=== PATIENT | female | born 1975 | race Caucasian/White ===

== ENCOUNTER 2019-12-23 18:28 | Emergency (ER) | payer OTHER ==
[~2019-12-23] VITALS: Ht 170.2 cm; Wt 113.4 kg
[2019-12-23 18:40] VITALS: BP 139/59
--- NOTE | 2019-12-23 18:40 | NUR ---
ED Nurse Note: Patient walked into ED from home for c/o SOB that has become worse x 2 weeks. Patient also has cough with audible wheezing. Upon ED arrival, patient placed in room and connected to cardiovascular lab director. Pt noted to be tachy on monitor and oxygen saturation was 89/90% on RA. Pt becomes tachypneic with exertion, but is able to speak in full sentences. Pt placed on 2L oxygen via NC and oxygen sat went to 95%. She is aaox4. Safety measures in place. Will continue to monitor.
[2019-12-23] MEDS: Albuterol/Ipratropium 3ml neb HHN SCH ×4 (19:10→19:45)
[2019-12-23] MEDS ORDERED: ALBUTEROL SULF8.5 G1 INH (19:55)
[2019-12-23] MEDS ORDERED: PROMETHAZINE-C118 M1 ORAL (19:55)
[2019-12-23] MEDS ORDERED: AUGMENTIN 875-1 EAC1 ORAL (19:55)
[2019-12-23] MEDS ORDERED: PREDNISONE20 MG ORAL (19:55)
[2019-12-23 20:05] VITALS: BP 140/66
--- NOTE | 2019-12-23 20:05 | NUR ---
ER DISCHARGE NOTE: Patient is cleared to be discharged per ERMD, pt is aox4, on room air, with stable vital signs for pt; ermd aware of HR. pt was given dc and prescription instructions, pt was able to verbalize understanding, pt id band removed. pt is able to ambulate with steady gait. pt took all belongings.
--- NOTE | 2019-12-23 20:05 | NUR ---
ED Nurse Note: ALANNAD aware of pt HR upon DC. Patient states she feels better and is not SOB after treatment.
--- NOTE | 2019-12-23 20:57 | Emergency Room Report ---
History of Present Illness General Chief Complaint: Dyspnea/Respdistress Source: Patient Present Illness HPI 44-year-old female presents the ED with cough, wheezing x2 weeks. History of COPD. States cough is dry. Denies fevers or chills. Denies chest pain. Denies sick contacts or recent travel. States she has been recently tested for COVID and was negative. Also has multiple sores and on both of her arms. Denies pain. No other aggravating relieving factors. 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 - 5 days ago COVID-19 Screening: Negative COVID-19 COVID-19 Testing Source: nasal Patient History Past Medical History: HTN, COPD Pertinent Family History: none Social History: Denies: smoking, alcohol use, drug use Now: No Immunizations: UTD Reviewed Nursing Documentation: PMH: Agreed; PSxH: Agreed Nursing Documentation-PMH Past Medical History: No History, Except For Hx Hypertension: Yes Hx COPD: Yes Review of Systems All Other Systems: negative except mentioned in HPI Physical Exam Vital Signs Date Time Temp Pulse Resp B/P (MAP) Pulse Ox O2 Delivery O2 Flow Rate FiO2 12/23/19 18:38 99.9 134 30 89 Room Air 12/23/19 18:40 2.0 12/23/19 18:40 139/59 12/23/19 19:11 24 Sp02 EP Interpretation: reviewed, normal General Appearance: no apparent distress, alert, GCS 15, non-toxic, obese Head: normocephalic, atraumatic Eyes: bilateral eye normal inspection, bilateral eye PERRL ENT: hearing grossly normal, normal pharynx, no angioedema, normal voice Neck: full range of motion, supple/symm/no masses Respiratory: chest non-tender, normal breath sounds, speaking full sentences, wheezing Cardiovascular #1: regular rate, rhythm, no edema Cardiovascular #2: 2+ carotid (R), 2+ carotid (L), 2+ radial (R), 2+ radial (L), 2+ dorsalis pedis (R), 2+ dorsalis pedis (L) Gastrointestinal: normal bowel sounds, non tender, soft, non-distended, no guarding, no rebound Rectal: deferred Genitourinary: normal inspection, no CVA tenderness Musculoskeletal: back normal, normal range of motion, gait/station normal, non- tender Neurologic: alert, motor strength/tone normal, oriented x3, sensory intact, responsive, speech normal Psychiatric: judgement/insight normal, memory normal, mood/affect normal, no suicidal/homicidal ideation Reflexes: 3+ bicep (R), 3+ bicep (L), 3+ tricep (R), 3+ tricep (L), 3+ knee (R), 3+ knee (L) Skin: other - multiple ulcers noted to upper extremities bilaterally. surrounding erythema/induration. no discharge Lymphatic: no adenopathy Procedures Critical Care Time Critical Care Time i. I feel this is a highly complex case requiring extensive working including EKG/Rhythm strip, Xray/CT/US, Blood/urine lab work, repeat exams while in ED, and administration of strong opiates/narcotics for pain control, admission to hospital or close patient follow up. Total time: 30 min bedside evaluation and treatment excludes procedures (EKG). Reason for critical care: resp distress. COPD Possible complications: hypotension, hypertension, AL, shock, arrhythmias, metabolic acidosis, end organ damage, respiratory failure. Interventions: Prednisone, nebulizer treatment, chest x-ray Course: Patient presenting with shortness of breath, wheezing. History of COPD. O2 sats in the low 90s. Given breathing treatment. Chest x-ray shows no focal consolidation. Improved after breathing treatment. O2 sats improved. Consultations: nursing staff, EMS, family Performed by: Dr Salamanca Tolerated well condition = stable j. because of unstable vital signs this patient had a condition that could potentially threaten life or limb. I feel this is a critical patient who required my full attention while patient was considered critical. Total Critical Care Time excluding procedures was greater than 35 minutes Medical Decision Making Diagnostic Impression: Primary Impression: Cellulitis Qualified Codes: L03.119 - Cellulitis of unspecified part of limb Additional Impression: COPD (chronic obstructive pulmonary disease) Qualified Codes: J44.9 - Chronic obstructive pulmonary disease, unspecified ER Course Hospital Course 44-year-old female presents to ED complaining of cough, wheezing Differential diagnoses include: URI, bronchitis, asthma/COPD, pneumonia Clinical course Patient placed on stretcher. After initial history and physical I ordered prednisone, cxr and nebulizer treatment. Chest x-ray shows no focal consolidation Reassessment patient states she feels better. O2 sats improved. Wheezing resolved. Discussed findings with patient. Will discharge home with antib iotics. Will also provide coverage for the ulcers on her arms and legs. Safe for discharge close outpatient follow-up. I will provide referrals Diagnosis - COPD, cellulitis Stable and discharged home with prescriptions for Rx prednisone, augmentin, pr omethazine/codeine, albuterol. Instructed to followup with PMD. Return to ED if symptoms recur or worsen Last Vital Signs Date Time Temp Pulse Resp B/P (MAP) Pulse Ox O2 Delivery O2 Flow Rate FiO2 12/23/19 20:05 99.5 120 20 140/66 95 Room Air 12/23/19 19:28 1.0 24 Status: improved Disposition: HOME, SELF-CARE Condition: Stable Scripts Codeine/Promethazine Hcl* (PROMETHAZINE-CODEINE SYRUP*) 118 Ml Syrup 5 ML ORAL Q4H PRN for For Cough, #118 ML 0 Refills Prov: Tunde Salamanca MD 12/23/19 Amoxicillin/Potassium Clav 875-125* (AUGMENTIN 875-125 TABLET*) 1 Each Tablet 1 TAB ORAL TWICE A DAY, #14 TAB Prov: Tunde Salamanca MD 12/23/19 Albuterol Sulfate* (Albuterol Sulfate Hfa*) 8.5 Gm Hfa.aer.ad 2 PUFF INH Q4H, #1 INH Prov: Tunde Salamanca MD 12/23/19 Prednisone* (PREDNISONE*) 20 Mg Tablet 40 MG ORAL DAILY, #10 TAB Prov: Tunde Salamanca MD 12/23/19 Referrals: [facility] Patient Instructions: Chronic Obstructive Pulmonary Disease Exacerbation Tunde Salamanca MD Dec 23, 2019 20:57
--- NOTE | 2019-12-24 14:09 | Diagnostic Imaging Report ---
Indication: Shortness of breath Technique: One view of the chest Comparison: 08/24/2008 Findings: The heart is enlarged. This is a new finding. There is left midlung atelectasis. Lungs and pleural spaces are otherwise clear. Impression: Cardiomegaly Left midlung atelectasis
== END 2019-12-23 20:05 | disposition home or self-care (01) ==
LOC: EMR 19:00
DX: J44.9 Chronic obstructive pulmonary disease, unspecified (principal); L03.119 Cellulitis of unspecified part of limb; I10 Essential (primary) hypertension; E66.9 Obesity, unspecified
CPT/HCPCS: 71045; 94640; 99291; J7512; J7620

== ENCOUNTER 2020-01-28 17:15 | Inpatient (IN) | payer OTHER ==
[~2020-01-28] VITALS: Ht 170.2 cm; Wt 151.5 kg
[~2020-01-28 17:15] MED LIST: ALBUTEROL SULF8.5 G1 INH; AUGMENTIN 875-1 EAC1 ORAL; PREDNISONE20 MG ORAL; PROMETHAZINE-C118 M1 ORAL
[2020-01-28 17:45] VITALS: BP 168/103
--- NOTE | 2020-01-28 17:45 | NUR ---
ED Nurse Note: Pt wheeled in accompanied by her PA d/t SOB x 2 month. Pt also reporting bilateral lower ext swelling with redness, pus noted on right leg. Abdomen large with redness as well. Respirations are labored and tachy @ 28 breaths/min on room air with O2 sat 94%. Heart rate sinus tachy on the monitor @ 143. All other vitals stable as documented. A+Ox4, speaking in complete sentences.
[2020-01-28 18:00] LABS: BASOPHILS % (AUTO) 0.8 % (0.0-2.0); EOSINOPHILS % (AUTO) 0.4 % (0.0-3.0); HEMATOCRIT 43.1 % (37.0-47.0); HEMOGLOBIN 13.5 G/DL (12.0-16.0); LYMPHOCYTES % (AUTO) 30.5 % (20.0-45.0); MEAN CORPUSCULAR VOLUME 96 FL (80-99); NEUTROPHILS % (AUTO) 59.3 % (45.0-75.0); PLATELET COUNT 269 K/UL (150-450); RED BLOOD COUNT 4.48 M/UL (4.20-5.40); WHITE BLOOD COUNT 7.9 K/UL (4.8-10.8)
--- NOTE | 2020-01-28 18:09 | Diagnostic Imaging Report ---
EXAM: XR Chest, 1 View CLINICAL HISTORY: SOB TECHNIQUE: Frontal view of the chest. COMPARISON: 12/23/2019. FINDINGS: Lungs: There is prominence of central pulmonary vasculature. Interstitial prominence. Scarring versus subsegmental atelectasis left midlung zone. Pleural space: Unremarkable. No pneumothorax. Heart: Cardiomegaly. Mediastinum: Unremarkable. Bones/joints: Osteopenia. Other findings: There is hypoaeration. IMPRESSION: 1. Cardiomegaly. 2. Findings suggestive of incipient congestive heart failure. Clinical correlation is advised. 3. Scarring versus atelectasis left midlung zone, similar to that noted on the previous study. 4. Osteopenia.
[2020-01-28 18:13] LABS: ANION GAP 12 mmol/L (5-15); BLOOD UREA NITROGEN 6 mg/dL (7-18); CALCIUM 8.3 MG/DL (8.5-10.1); CARBON DIOXIDE 26 MMOL/L (21-32); CHLORIDE 101 MMOL/L (98-107); CREATININE 0.8 MG/DL (0.55-1.30); POTASSIUM 3.7 MMOL/L (3.5-5.1); SODIUM 139 MMOL/L (136-145)
[2020-01-28] MEDS ORDERED: Vancomycin 1.5 GM in NS 275 ML IVPB ONE (18:15)
[2020-01-28] MEDS ORDERED: Nitroglycerin 2% oint pkt TOPIC ONE (18:15)
[2020-01-28 18:31] LABS: ALANINE AMINOTRANSFERASE 83 U/L (12-78); ALBUMIN 3.2 G/DL (3.4-5.0); ALBUMIN/GLOBULIN RATIO 0.8 (1.0-2.7); ALKALINE PHOSPHATASE 118 U/L (46-116); ASPARTATE AMINO TRANSFERASE 154 U/L (15-37); BILIRUBIN,TOTAL 1.3 MG/DL (0.2-1.0); CKMB 2.4 NG/ML (0.0-3.6); CREATINE KINASE 113 U/L (26-308); FERRITIN 100 NG/ML (8-388); LACTATE DEHYDROGENASE 447 U/L (81-234)
[2020-01-28 18:35] LABS: BILIRUBIN,DIRECT 0.8 MG/DL (0.0-0.3)
--- NOTE | 2020-01-28 18:36 | NUR ---
ED Nurse Note: pt aware of need for urine sample.
[2020-01-28] MEDS ORDERED: Adenosine 6mg/2ml Inj IVP ONE ×3 (18:45→21:15)
--- NOTE | 2020-01-28 18:59 | NUR ---
ED Nurse Note: lactic acid reflex and urine sent to lab
--- NOTE | 2020-01-28 19:17 | NUR ---
HAND-OFF: Report given to ANNABELLE Nicole. Pt in stable condition; plan of care endorsed.
--- NOTE | 2020-01-28 19:21 | NUR ---
ED Nurse Note: ERMD at bedside, 6mg Adenosine pushed, ineffective.
[2020-01-28 19:50] LABS: APPEARANCE,URINE SLIGHTLY CLOUDY; BILIRUBIN, URINE NEGATIVE (NEGATIVE); GLUCOSE, URINE (UA) NEGATIVE (NEGATIVE); KETONES,URINE 1+ (NEGATIVE); LEUKOCYTE ESTERASE ,URINE 1+ (NEGATIVE); NITRITE,URINE NEGATIVE (NEGATIVE); PH,URINE 6.5 (4.5-8.0); PROTEIN,URINE 2+ (NEGATIVE); UROBILINOGEN,URINE 8 MG/DL (0.0-1.0)
[2020-01-28 19:55] LABS: COLOR,URINE YELLOW
--- NOTE | 2020-01-28 20:06 | NUR ---
ED Nurse Note: Patient refused urinary cath.
--- NOTE | 2020-01-28 20:29 | NUR ---
ED Nurse Note: Patient agreed to have velez urinary cath inserted, velez cath 16 F inserted, rg care provided, patent and draining.
--- NOTE | 2020-01-28 20:57 | Emergency Room Report ---
History of Present Illness General Chief Complaint: Dyspnea/Respdistress Source: Patient Present Illness HPI The patient is homeless and living in her van. She is getting medical care by the out reach medical program. She had been followed closely by a physician recruiting assistant in that program. The physician recruiting assistant and the RN on the out reach team did accompany the patient here to the emergency department. The patient has had an ongoing cellulitis in her right lower extremity and has been on oral antibiotics of Septra and Keflex. However, the cellulitis has been worsening. Also, the patient has been complaining of difficulty breathing and worsening swelling in her lower extremities. Patient does have a history of COPD. She has an umbilical hernia. She denies fever or chills. She denies nausea or vomiting and she denies cough or congestion. She has no other complaints. 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 COVID-19 Screening: Negative COVID-19 COVID-19 Testing Source: nasopharynx Patient History Past Medical History: see triage record, HTN, COPD, other - HCV Social History: Reports: drug use - Meth; Denies: smoking, alcohol use Now: No Reviewed Nursing Documentation: PMH: Agreed; PSxH: Agreed Nursing Documentation-PMH Hx Hypertension: Yes Hx COPD: Yes Review of Systems All Other Systems: negative except mentioned in HPI Physical Exam Vital Signs Date Time Temp Pulse Resp B/P (MAP) Pulse Ox O2 Delivery O2 Flow Rate FiO2 01/28/20 17:35 97.0 135 30 163/100 (121) 96 Room Air Sp02 EP Interpretation: reviewed, normal General Appearance: no apparent distress, alert, GCS 15, non-toxic, obese Head: normocephalic, atraumatic Eyes: bilateral eye normal inspection, bilateral eye PERRL ENT: hearing grossly normal, normal pharynx, no angioedema, normal voice Neck: full range of motion, supple/symm/no masses Respiratory: no respiratory distress, no retraction, no accessory muscle use, rales, speaking full sentences Cardiovascular #1: regular rate, rhythm, no edema Gastrointestinal: normal bowel sounds, soft, non-distended, no guarding, no rebound, tenderness - TTP over a large umbilical hernia. Rectal: deferred Musculoskeletal: normal range of motion, swelling - BLE edema. RLE w/ erythema, warmth and overlying large pustules Neurologic: alert, motor strength/tone normal, oriented x3, sensory intact, responsive, speech normal Psychiatric: judgement/insight normal, memory normal, mood/affect normal, no suicidal/homicidal ideation Skin: other - See MSK exam Medical Decision Making Diagnostic Impression: Primary Impression: Cellulitis Additional Impressions: CHF (congestive heart failure) SVT (supraventricular tachycardia) ER Course This patient is complicated. The patient has been living in her van on [address]. She has multiple ongoing acute medical illnesses. She has a right lower extremity cellulitis that has been resistant to oral outpatient therapy. She was given vancomycin IV for her cellulitis. She also presented in SVT and was difficult to control but eventually was controlled with adenosine followed by labetalol. She is found to have cardiomegaly and CHF. There is no previous diagnosis of CHF. She was given Lasix IV and Nitropaste was placed on her chest wall. She also has a history of heavy tobacco use and has a history of COPD and she was also having a COPD exacerbation. She was requiring oxygen to maintain saturations over 90%. She was given albuterol, Atrovent nebulizer treatments and prednisone. The patient was complicated requiring close monitoring and treatments for multiple medical conditions at the same time. Further, she was requesting to go outside and smoke. The patient is admitted for CHF, COPD and ongoing cellulitis. This patient was evaluated in the context of the global COVID-19 pandemic, which necessitated consideration that the patient might be at risk for infection with the [id number] virus that causes COVID-19. Institutional protocols and algorithms that pertain to the evaluation of patients at risk for COVID-19 and the state of rapid change based on information released by multiple regulatory bodies including the CDC and federal and state organizations. These policies and algorithms were followed during the patient's care in the ED. This patient is critically ill. This patient required complex medical decision- making, aggressive intervention, extensive laboratory workup and monitoring. Critical care time: 40 minutes. Laboratory Tests Test 01/28/20 17:35 01/28/20 18:50 White Blood Count 7.9 K/UL (4.8-10.8) Red Blood Count 4.48 M/UL (4.20-5.40) Hemoglobin 13.5 G/DL (12.0-16.0) Hematocrit 43.1 % (37.0-47.0) Mean Corpuscular Volume 96 FL (80-99) Mean Corpuscular Hemoglobin 30.1 PG (27.0-31.0) Mean Corpuscular Hemoglobin Concent 31.2 G/DL (32.0-36.0) L Red Cell Distribution Width 19.0 % (11.6-14.8) H Platelet Count 269 K/UL (150-450) Mean Platelet Volume 8.8 FL (6.5-10.1) Neutrophils (%) (Auto) 59.3 % (45.0-75.0) Lymphocytes (%) (Auto) 30.5 % (20.0-45.0) Monocytes (%) (Auto) 9.0 % (1.0-10.0) Eosinophils (%) (Auto) 0.4 % (0.0-3.0) Basophils (%) (Auto) 0.8 % (0.0-2.0) Prothrombin Time 11.5 SEC (9.30-11.50) Prothrombin Time INR 1.0 (0.9-1.1) Activated Partial Thromboplast Time 24 SEC (23-33) D-Dimer 4.08 mg/L FEU (0.00-0.49) H Sodium Level 139 MMOL/L (136-145) Potassium Level 3.7 MMOL/L (3.5-5.1) Chloride Level 101 MMOL/L (98-107) Carbon Dioxide Level 26 MMOL/L (21-32) Anion Gap 12 mmol/L (5-15) Blood Urea Nitrogen 6 mg/dL (7-18) L Creatinine 0.8 MG/DL (0.55-1.30) Estimated Glomerular Filtration Rate > 60 mL/min (>60) Glucose Level 135 MG/DL (74-106) H Lactic Acid Level 2.90 mmol/L (0.4-2.0) H 2.60 mmol/L (0.66-2.22) H Calcium Level 8.3 MG/DL (8.5-10.1) L Ferritin 100 NG/ML (8-388) Total Bilirubin 1.3 MG/DL (0.2-1.0) H Direct Bilirubin 0.8 MG/DL (0.0-0.3) H Aspartate Amino Transferase (AST) 154 U/L (15-37) H Alanine Aminotransferase (ALT) 83 U/L (12-78) H Alkaline Phosphatase 118 U/L (46-116) H Lactate Dehydrogenase 447 U/L (81-234) H Total Creatine Kinase 113 U/L (26-308) Creatine Kinase MB 2.4 NG/ML (0.0-3.6) Creatine Kinase MB Relative Index 2.1 Troponin I 0.046 ng/mL (0.000-0.056) C-Reactive Protein, Quantitative 8.7 mg/dL (0.00-0.90) H Pro-B-Type Natriuretic Peptide 2555 pg/mL (0-125) H Total Protein 7.4 G/DL (6.4-8.2) Albumin 3.2 G/DL (3.4-5.0) L Globulin 4.2 g/dL Albumin/Globulin Ratio 0.8 (1.0-2.7) L Lipase 292 U/L (73-393) Urine Color Yellow Urine Appearance Slightly cloudy Urine pH 6.5 (4.5-8.0) Urine Specific [place] 1.010 (1.005-1.035) Urine Protein 2+ (NEGATIVE) H Urine Glucose (UA) Negative (NEGATIVE) Urine Ketones 1+ (NEGATIVE) H Urine Blood 2+ (NEGATIVE) H Urine Nitrite Negative (NEGATIVE) Urine Bilirubin Negative (NEGATIVE) Urine Urobilinogen 8 MG/DL (0.0-1.0) H Urine Leukocyte Esterase 1+ (NEGATIVE) H Urine RBC 10-15 /HPF (0 - 2) H Urine WBC 5-10 /HPF (0 - 2) H Urine Squamous Epithelial Cells Many /LPF (NONE/OCC) H Urine Bacteria Moderate /HPF (NONE) H Microbiology Date/Time Source Procedure Growth Status 01/28/20 18:15 Nasopharynx SARS-CoV-2 RdRp Gene Assay - Final Complete EKG Diagnostic Results Rate: tachycardiac Rhythm: other - SVT ST Segments: other - NSST changes Rhythm Strip Diag. Results EP Interpretation: yes Rate: 140's Rhythm: no PVC's, no ectopy, other - SVT/S.tachycardia Chest X-Ray Diagnostic Results Chest X-Ray Diagnostic Results : Chest X-Ray Ordered: Yes # of Views/Limited/Complete: 1 View Indication: Other - Cardiomegaly EP Interpretation: Yes Interpretation: other - Diffuse patchy opacities Impression: Other - CHF/Cardiomegaly Electronically Signed by: Rosa Maria Dickey DO Last Vital Signs Date Time Temp Pulse Resp B/P (MAP) Pulse Ox O2 Delivery O2 Flow Rate FiO2 01/28/20 19:24 137 01/28/20 18:23 162/105 01/28/20 17:45 97.3 30 95 Room Air Disposition: ADMITTED INPATIENT Condition: Serious Referrals: NON PHYSICIAN (PCP) Rosa Maria Dickey DO Jan 28, 2020 20:56
[2020-01-28] MEDS ORDERED: Adenosine 6mg/2ml Inj ONE (21:06)
[2020-01-28] MEDS ORDERED: Ipratropium 0.02% Inh Soln 2.5ml UD HHN ONE (21:30)
[2020-01-28] MEDS ORDERED: Albuterol ud Inhalation HHN ONE (21:30)
[2020-01-28] MEDS ORDERED: Labetalol 5mg/ml 20ml vial IV ONE (21:30)
--- NOTE | 2020-01-28 22:53 | NUR ---
ED Nurse Note: Report given to ANNABELLE Gould.
--- NOTE | 2020-01-28 23:00 | NUR ---
NURSE NOTES: Received pt from ED via [place]. Pt transferred to [facility] without any incident. Received report from ANNABELLE Nicole. Pt is A/Ox4. [place] pt to room and unit. bridge rigger is in placed; pt is in ST (119 bpm). IV site intact, asymptomatic, and patent. Belongings list checked and signed. Bed is in the lowest position and locked. Call light and bedside table is within reach. Pt is tachypneic, RR 25 breaths per min; otherwise pt is in stable condition. Will contact MD for admission orders.
--- NOTE | 2020-01-28 23:00 | NUR ---
TRANSFER TO FLOOR: Patient transferred to telemetry as ordered, per ERMD. Report given to ANNABELLE Gould. Patient transported via gurney in stable condition.
--- NOTE | 2020-01-28 23:15 | NUR ---
NURSE NOTES: Contacted Dr. Caputo for admission orders. Awaiting call back. Received bridging orders from ED MD.
[2020-01-29] VITALS: BP 128/67
[2020-01-29 04:00] VITALS: BP 133/98
--- NOTE | 2020-01-29 05:41 | NUR ---
NURSE NOTES: Dr. Still gave orders for Cardiac diet, Full code, and Ancef [address] Still said those orders for now and he will see pt later in the morning. Will note and carry out.
[2020-01-29] MEDS ORDERED: ceFAZolin sod 1 GM in D5W 55 ML IVPB SCH (06:00)
--- NOTE | 2020-01-29 07:30 | NUR ---
NURSE NOTES: Received report from Bryanna/RN, Observed patient lying semi-lopez's, awake and alert. Able to make needs known, Denies pain at this time. On 1L nasal canula, no acute distress noted. Robertson draining well to gravity. Bed in low position and locked, Call light within reach, Encouraged to use call light when needed. Will Continue plan of care.
--- NOTE | 2020-01-29 07:46 | NUR ---
NURSE HAND-OFF REPORT: Important Events on Shift: Pt admitted for CHF/Cellulitis of Rt lower extremity. Patient Status: Stable Diet: Renal Pending Orders: N Pending Results/Labs: N Pending MD notification: N Latest Vital Signs: Temperature 98.8 , Pulse 121 , B/P 133 /98 , Respiratory Rate 24 , O2 SAT 95 , Simple Mask, O2 Flow Rate 2.0 . EKG Rhythm: Sinus Tachycardia Rhythm change?: N MD Notified?: Y Response: Dr. Caputo Latest Knight Fall Score: 70 Fall Risk: High Risk Safety Measures: Call light Within Reach, Bed Alarm Zone 1, Side Rails Side Rails x2, Bed position Low and Locked. Fall Precautions: Yellow Socks Patient Fall Education Report given to ANNABELLE Hall.
[2020-01-29 08:00] VITALS: BP 143/79
--- NOTE | 2020-01-29 08:28 | NUR ---
CASE MANAGEMENT:REVIEW PRESENTED TO ER BY PHYSICIAN CLINICAL LAB SPECIALIST AND SERVICE DOG CC; SOB AND BILATERAL KNEE SWELLING W/PUS...FAILED OUTPATIENT TREATMENT SI: CHF. SVT. CELLULITIS 97.0 135 30 163/100 96% ON RA LACTIC ACID+2.90 BNP+2555 URINE(+) BACTERIA AND WBC'S IS: IV VANCOMYCIN NITRO 1" IV LASIX IV ADENOSINE X2 URINE CX CXR : TO TELEMETRY UNIT
--- NOTE | 2020-01-29 10:32 | Cardiac Electrophysiology PN ---
Subjective Subjective [id number] Objective Last 24 Hour Vital Signs Date Time Temp Pulse Resp B/P (MAP) Pulse Ox O2 Delivery O2 Flow Rate FiO2 01/29/20 09:00 Nasal Cannula 2.0 01/29/20 08:00 98.0 124 26 143/79 (100) 94 01/29/20 08:00 125 01/29/20 04:00 124 01/29/20 04:00 98.8 121 24 133/98 (110) 95 01/29/20 00:00 98.8 119 22 128/67 (87) 96 01/29/20 00:00 125 01/28/20 23:00 97.9 112 25 158/73 96 Nasal Cannula 2.0 01/28/20 23:00 Simple Mask 2.0 01/28/20 21:39 114 28 94 01/28/20 21:35 129 161/88 01/28/20 21:33 127 30 92 Nasal Cannula 2.0 28 01/28/20 21:11 135 01/28/20 21:00 134 01/28/20 19:24 137 01/28/20 18:23 162/105 01/28/20 17:45 97.3 143 30 168/103 95 Room Air 01/28/20 17:45 143 28 Room Air 01/28/20 17:35 97.0 135 30 163/100 (121) 96 Room Air Intake and Output 01/28/20 01/29/20 18:59 06:59 Intake Total 625 ml Output Total 1800 ml Balance -1175 ml Intake Oral 350 ml IV Total 275 ml Output Urine Total 1800 ml # Voids 1 Laboratory Tests Test 01/28/20 17:35 01/28/20 18:50 White Blood Count 7.9 K/UL (4.8-10.8) Red Blood Count 4.48 M/UL (4.20-5.40) Hemoglobin 13.5 G/DL (12.0-16.0) Hematocrit 43.1 % (37.0-47.0) Mean Corpuscular Volume 96 FL (80-99) Mean Corpuscular Hemoglobin 30.1 PG (27.0-31.0) Mean Corpuscular Hemoglobin Concent 31.2 G/DL (32.0-36.0) L Red Cell Distribution Width 19.0 % (11.6-14.8) H Platelet Count 269 K/UL (150-450) Mean Platelet Volume 8.8 FL (6.5-10.1) Neutrophils (%) (Auto) 59.3 % (45.0-75.0) Lymphocytes (%) (Auto) 30.5 % (20.0-45.0) Monocytes (%) (Auto) 9.0 % (1.0-10.0) Eosinophils (%) (Auto) 0.4 % (0.0-3.0) Basophils (%) (Auto) 0.8 % (0.0-2.0) Prothrombin Time 11.5 SEC (9.30-11.50) Prothromb Time International Ratio 1.0 (0.9-1.1) Activated Partial Thromboplast Time 24 SEC (23-33) D-Dimer 4.08 mg/L FEU (0.00-0.49) H Sodium Level 139 MMOL/L (136-145) Potassium Level 3.7 MMOL/L (3.5-5.1) Chloride Level 101 MMOL/L (98-107) Carbon Dioxide Level 26 MMOL/L (21-32) Anion Gap 12 mmol/L (5-15) Blood Urea Nitrogen 6 mg/dL (7-18) L Creatinine 0.8 MG/DL (0.55-1.30) Estimat Glomerular Filtration Rate > 60 mL/min (>60) Glucose Level 135 MG/DL (74-106) H Lactic Acid Level 2.90 mmol/L (0.4-2.0) H 2.60 mmol/L (0.66-2.22) H Calcium Level 8.3 MG/DL (8.5-10.1) L Ferritin 100 NG/ML (8-388) Total Bilirubin 1.3 MG/DL (0.2-1.0) H Direct Bilirubin 0.8 MG/DL (0.0-0.3) H Aspartate Amino Transf (AST/SGOT) 154 U/L (15-37) H Alanine Aminotransferase (ALT/SGPT) 83 U/L (12-78) H Alkaline Phosphatase 118 U/L (46-116) H Lactate Dehydrogenase 447 U/L (81-234) H Total Creatine Kinase 113 U/L (26-308) Creatine Kinase MB 2.4 NG/ML (0.0-3.6) Creatine Kinase MB Relative Index 2.1 Troponin I 0.046 ng/mL (0.000-0.056) C-Reactive Protein, Quantitative 8.7 mg/dL (0.00-0.90) H Pro-B-Type Natriuretic Peptide 2555 pg/mL (0-125) H Total Protein 7.4 G/DL (6.4-8.2) Albumin 3.2 G/DL (3.4-5.0) L Globulin 4.2 g/dL Albumin/Globulin Ratio 0.8 (1.0-2.7) L Lipase 292 U/L (73-393) Urine Color Yellow Urine Appearance Slightly cloudy Urine pH 6.5 (4.5-8.0) Urine Specific [place] 1.010 (1.005-1.035) Urine Protein 2+ (NEGATIVE) H Urine Glucose (UA) Negative (NEGATIVE) Urine Ketones 1+ (NEGATIVE) H Urine Blood 2+ (NEGATIVE) H Urine Nitrite Negative (NEGATIVE) Urine Bilirubin Negative (NEGATIVE) Urine Urobilinogen 8 MG/DL (0.0-1.0) H Urine Leukocyte Esterase 1+ (NEGATIVE) H Urine RBC 10-15 /HPF (0 - 2) H Urine WBC 5-10 /HPF (0 - 2) H Urine Squamous Epithelial Cells Many /LPF (NONE/OCC) H Urine Bacteria Moderate /HPF (NONE) H Microbiology Date/Time Source Procedure Growth Status 01/28/20 18:15 Nasopharynx SARS-CoV-2 RdRp Gene Assay - Final Complete Zacarias Hatfield MD Jan 29, 2020 10:32
--- NOTE | 2020-01-29 11:13 | NUR ---
NURSE NOTES:Skin/Wound assessment Right buttock pressure ulcer stage 2 5.0x2.0x0.2 pink wound bed ,small amount serous drainage periwound skin intact, Calazime and Optifoam applied.Right lower leg cellulitis with ulcers scattered anterior low leg 7.5x11.0x0.2 dry and moist scabs noted small amount serous drainage,red periwound skin,painful to touch, Xeroform and Kerlix applied change daily.Bilateral heels skin intact large callus left heel.Patient alert and able to turn self educated on pressure relief measures.
[2020-01-29 12:00] VITALS: BP 137/53
[2020-01-29] MEDS ORDERED: cefTRIAXone 1 GM in D5W 55 ML IVPB SCH (12:00)
--- NOTE | 2020-01-29 12:00 | Consultation ---
DATE OF CONSULTATION: 01/29/2020 CARDIOLOGY CONSULTATION CONSULTING PHYSICIAN: Zacarias Hatfield MD. REFERRING PHYSICIAN: Bobby Caputo DO. REASON FOR CONSULTATION: Management of hypertension and congestive heart failure. HISTORY OF PRESENT ILLNESS: The patient is a 44-year-old lady who is homeless, living in a van who is getting medical care by outpatient program. The patient was told by the physician floor covering printer assistant in the outpatient program to go to the emergency room as she was having ongoing cellulitis of lower extremity, has been on oral antibiotics Septra and Keflex, cellulitis is getting worse. The patient noticed increased lower extremity edema as well as shortness of breath. The patient also has history of COPD and there is umbilical hernia. The patient also has hepatitis C and has been actively drinking, smoking, using pot as well as crystal meth. Her blood pressure in the ER was 162/100 with a pulse of 135. REVIEW OF SYSTEMS: Negative other than what was mentioned in history of present illness. PAST MEDICAL HISTORY: As mentioned above. FAMILY HISTORY: Noncontributory. SOCIAL HISTORY: She is homeless. Lives in a van. Smokes and drinks alcohol and uses crystal meth. PHYSICAL EXAMINATION: VITAL SIGNS: Show blood pressure 142/79, pulse is 120, respirations 18, she is afebrile. HEAD AND NECK: Shows no JVD. LUNGS: Coarse rhonchi. CARDIOVASCULAR: Tachycardic S1 and S2 with no gallop. ABDOMEN: Obese. EXTREMITIES: A 2+ pitting edema and cellulitis, poor foot hygiene. LABORATORY AND DIAGNOSTIC DATA: EKG shows sinus tachycardia, no acute ST-T wave abnormalities. Her labs show white count 7.9, hemoglobin 13.5, hematocrit 43.1, and platelet count 269. Sodium 139, potassium 3.7, BUN of 6, creatinine 0.8. Lactic acid is 2.9. First troponin is negative. Total bilirubin is 1.3. ASSESSMENT AND PLAN: 1. Increasing shortness of breath and lower extremity edema. BNP is more than 2500. We will get an echocardiogram to evaluate for ejection fraction and wall motion abnormality and start the patient on Lasix 40 mg IV b.i.d. 2. Hypertension. Start the patient on Lasix. 3. Lower extremity cellulitis. The patient will be started on antibiotic per ID. 4. Episodes of supraventricular tachycardia. The patient received multiple doses of adenosine in the emergency room. The patient's tachycardia improved finally with IV labetalol. We will watch the patient on telemetry. Keep the patient off of beta-darshana for close observation of supraventricular tachycardia. 5. Morbid obesity. 6. COPD. Thank you very much for allowing me to participate in the care of this patient. Please do not hesitate to contact me for any questions regarding my evaluation. Sincerely, Zacarias Hatfield M.D. DR: Cole JOB#: [id number] CC:
--- NOTE | 2020-01-29 12:45 | History and Physical Report ---
DATE OF ADMISSION: 01/28/2020 TIME SEEN: On 01/29/2020 at 10 a.m. CONSULTANTS: 1. Zacarias Hatfield MD. 2. Juliocesar Milan MD. 3. Valdemar Still MD. CHIEF COMPLAINT: Shortness of breath, CHF, hep C, right lower extremity cellulitis, COPD exacerbation. BRIEF HISTORY: The patient is a 44-year-old homeless female presents to [place] ER last night with increased shortness of breath for last 3 days, developed right lower extremity cellulitis as well. The patient came to ER, diagnosed with above, admitted to telemetry, currently O2 NC, slight short of breath in bed, no complaint otherwise. REVIEW OF SYSTEMS: No chest pain. Slight short of breath. No nausea, vomiting, or diarrhea. PAST MEDICAL HISTORY: CHF, COPD, hep C, cellulitis right lower extremity. PAST SURGICAL HISTORY: Gallbladder. MEDICATIONS: Furosemide, cefazolin, prednisone, labetalol, adenosine, vancomycin. ALLERGIES: Denies. SOCIAL HISTORY: Positive smoke. Positive alcohol. Positive marijuana and meth use. PHYSICAL EXAMINATION: GENERAL: O2 NC, slight short of breath in bed, oriented x3, no acute distress. VITAL SIGNS: Temperature 98 degrees, pulse 124, respiratory rate 26, blood pressure 143/79. CARDIOVASCULAR: No murmur. LUNGS: Poor air exchange. ABDOMEN: Bowel sounds distant. EXTREMITIES: No cyanosis, clubbing, 1+ edema right. Bilateral mckeon slightly red right side greater than left. NEUROLOGIC: The patient moves all extremities, slightly weak. LABORATORY AND DIAGNOSTIC DATA: Labs at this time show CBC is normal. BMP shows BUN 6, glucose 135. Lactic acid 2.9. Calcium 8.3. AST 153, ALT 83. Troponin 0.046. BNP is 2555. Albumin 3.2. INR is 1.0. Urinalysis show 1+ leukocyte esterase. ASSESSMENT: 1. Shortness of breath. 2. CHF and COPD exacerbation. 3. Cellulitis of right lower extremity. 4. UTI. 5. Hep C. 6. Malnutrition. PLAN: 1. O2 and pulmonary treatment. 2. Wound care. 3. Antibiotics per Infectious Diseases 4. Pain control. 5. Dietary followup. 6. Resume home medications. 7. CBC and BMP in the morning. Bobby Caputo D.O. DR: Emerson JOB#: [id number] CC:
[2020-01-29] MEDS ORDERED: Vancomycin 1.5 GM in NS 275 ML IVPB SCH (13:00)
--- NOTE | 2020-01-29 13:20 | NUR ---
NURSE NOTES: Patient wants to sign out AMA, But threatens to kill herself, also patient Can't walk. Contacted social service to talk to her. also will contact MD to get psych consult.
--- NOTE | 2020-01-29 13:55 | NUR ---
NURSE NOTES: RN (Kyung) from [facility] called and said to not let patient leave because patient is on suicidal ideation and She might hurt herself. Will contact MD for psych consult.
--- NOTE | 2020-01-29 14:00 | Consultation ---
DATE OF CONSULTATION: 01/29/2020 INFECTIOUS DISEASES CONSULTATION CONSULTING PHYSICIAN: Juliocesar Milan MD. REFERRING PHYSICIAN: Bobby Caputo DO. REASON FOR CONSULTATION: Possible pneumonia. HISTORY OF PRESENTING ILLNESS: This is a 44-year-old lady with history of hypertension and asthma who came in because she had increasing shortness of breath along with cough. There is a concern for COPD exacerbation and pneumonia. She has been also treated for cellulitis in her right lower extremity and an Infectious Diseases consultation has been obtained for antibiotics. PAST MEDICAL HISTORY: 1. History of hypertension. 2. History of asthma. SOCIAL HISTORY: She is a smoker. She drinks alcohol. She also smokes marijuana. FAMILY HISTORY: Positive for cancer as well as heart disease. REVIEW OF SYSTEMS: RESPIRATORY: She denies any fever or chills. She has cough. She has shortness of breath. No chest pain. CARDIAC: No chest pain. No palpitation. No dizziness. No syncope GASTROINTESTINAL: No nausea. No vomiting. No abdominal pain or diarrhea. MEDICATIONS: As an inpatient, she is on furosemide, IV vancomycin, Tylenol. ALLERGIES: No known drug allergies. PHYSICAL EXAMINATION: VITAL SIGNS: Temperature 98, T-max of 98, pulse of 124, respiratory rate 26, blood pressure 143/79, O2 saturation of 94% on 2 liters of oxygen. HEENT: Pupils equally reactive to light and accommodation. Mouth appears clean without thrush. NECK: Supple. No adenopathy. No JVD. CARDIOVASCULAR: Regular rate and rhythm. No murmurs. LUNGS: Wheezing noted bilaterally. ABDOMEN: Soft, nontender. No organomegaly. EXTREMITIES: No cyanosis. No clubbing. No edema. LABORATORY AND DIAGNOSTIC DATA: White count 7.9, hemoglobin 13.5, hematocrit 43.1, MCV 96, platelet count 269 with neutrophils of 59%. Sodium 139, potassium 3.7, chloride 101, bicarb 26, BUN 6, creatinine 0.8, glucose 135, calcium 8.3. Ferritin of 100. Total bilirubin 1.3, direct bilirubin 0.8, AST 154, ALT 83, alkaline phosphatase 118. LDH 447. CK of 113, CK-MB 2.4. Troponin 0.04. C-reactive protein 8.7. Beta-natriuretic peptide 2555. Total protein 7.4, albumin 3.2. Lipase of 292. UA showing 5 to 10 white cells. COVID-19 test is negative. Chest x-ray is showing findings suggestive of congestive heart failure, possible atelectasis in the left mid lung. ASSESSMENT: This is a 44-year-old lady with history of hypertension and asthma who comes in with cough and shortness of breath and is found to have. 1. Possible pneumonia. 2. She also has possible right leg cellulitis that is improving. 3. Hypertension. 4. Asthma. PLAN: 1. Continue IV vancomycin. 2. We will start the patient on ceftriaxone. 3. We will follow up cultures and adjust antibiotics accordingly. 4. We will order sputum for Gram stain and culture. I would like to thank, Dr. Bobby Caputo for this consultation. Juliocesar Milan M.D. DR: Anthony JOB#: [id number] CC: Bobby Caputo D.O.
--- NOTE | 2020-01-29 14:24 | NUR ---
HEALTH AND SAFETY TRAINER NOTE SW met w/ pt to discuss homelessness, and assessed SI. PT presents as A&O4x and somewhat irritable. PT has been homeless for years, did not provide the exact timeline. PT receives "survival benefit" $1687/mo. Pt has been residing in a van located in [place]. Pt is single and has no children. PT reports THC, ETOH and Methamphetamine abuse. PT is aware that she has COPD but admits frequent smoking. SW explained the risk of smoking and polysubstance abuse. Pt shares with this SW that she is aware of her health condition but she does not plan to stop abusing drugs/unhealthy habit. PT declined counseling/tx intervention on substance abuse. PT denies having suicidal thought/ideation, stating that "I don't feel suicidal. I am fine." Pt was unable to recall her psychiatric hx. PT reports she was diagnosed with mental illness, does not recall dx and has been non-compliant with medication/OP mental health services. PT declined to receive OP mental health referral/resource. PT reports being ambulatory w/o DME and independent w/ ADLs and IADLs. Pt shares "I might need something to walk" Pt appears to be overweight. PT evaluation recommended to evaluate pt's mobility. PT also declined to receive community resource packet. SW offered a placement assistance including board and care, independent living facilities. However, pt declined the placement assistance, planning to DC own resource to preferred location. SW encouraged pt to reconsider, but pt refused. Pt also declined a referral to [facility] (Homeless outreach)program. SW explained negative ramification of unlicensed facilities/self-directing. Pt will dc to preferred location upon DC when pt is medically cleared. Emergency contact: Nicole Simpson (sister) [phone]
--- NOTE | 2020-01-29 14:35 | Cardiology Report ---
APPROVED REPORT EXAM: Two-dimensional and M-mode echocardiogram with Doppler and color Doppler. INDICATION Congestive Heart Failure M-Mode DIMENSIONS IVSd0.8 (0.7-1.1cm)Left Atrium (MM)4.5 (1.6-4.0cm) LVDd6.2 (3.5-5.6cm)Aortic Root3.0 (2.0-3.7cm) PWd1.0 (0.7-1.1cm)Aortic Cusp Exc.1.7 (1.5-2.0cm) IVSs1.1 cm LVDs5.3 (2.5-4.0cm) PWs1.1 cm Other Information Technically limited study due to body habitus. <Conclusion> Technically difficult study due to body habitus. Mild left ventriuvclar enlargement. Global left ventricular hypokinesis. Left ventricular ejection fraction estimated to be 25- 30 %. No evidence of left ventricular hypertrophy. No evidence of pericardial fat or effusion. All other cardiac chamber sizes are within normal limits. Calcification of aortic valve with adequate cusp excursion. Thickened mitral valve leaflets with normal excursion. Mitral annulus and aortic root calcification. Pulmonic valve not well visualized. Normal tricuspid valve structure. IVC at normal size with physiologic collapse. A color flow and spectral Doppler study was performed and revealed: No aortic insufficiency. Trace mitral regurgitation. Trace tricuspid regurgitation. Tricuspid systolic velocities suggests peak right ventricular systolic pressure of 22 mmHg. No pulmonic insufficiency .
--- NOTE | 2020-01-29 15:26 | Cardiology Report ---
APPROVED REPORT EKG Measurement Heart [id number] <Conclusion> Supraventricular tachycardia Inferior infarct, age undetermined Anterolateral infarct, age undetermined Abnormal ECG
--- NOTE | 2020-01-29 15:38 | NUR ---
INSURANCE CLINICALS/REVIEW FAXED TO [facility] [phone]
--- NOTE | 2020-01-29 15:44 | Consultation ---
DATE OF CONSULTATION: 01/29/2020 PULMONARY CONSULTATION CONSULTING PHYSICIAN: Valdemar Still MD. HISTORY OF PRESENT ILLNESS: This is a 44-year-old homeless individual who resides in her van. She came to the hospital with complaints of swelling of both legs as well as probable infection to the right lower extremity. She has been on oral Bactrim and Keflex at home. The patient also reports shortness of breath and worsening dyspnea. She reports a history of COPD. PAST MEDICAL HISTORY: Notable for hypertension, COPD, chronic hepatitis C, homelessness, umbilical hernia. HOME MEDICATIONS: The patient is unable to recall. It appears she is not on any home medications. ALLERGIES: None reported. SOCIAL HISTORY: She is a homeless individual, active smoker. Lives in her van. REVIEW OF SYSTEMS: Denies any headaches, hematemesis, melena, or hematochezia. PHYSICAL EXAMINATION: GENERAL: Reveals an obese 44-year-old female. VITAL SIGNS: Heart rate is 120, respirations 22, blood pressure 140/70. O2 saturation 94% on 2 L oxygen. She is afebrile HEENT: Unremarkable. LUNGS: Shows diminished breath sounds bilaterally with normal heart sounds. ABDOMEN: Soft. EXTREMITIES: There is 2+ edema bilaterally with area of cellulitis over right mckeon. LABORATORY TESTING: Shows normal CBC and BMP with lactic acid 2.9, now 2.6. Total bilirubin 1.3, AST 154, ALT 83, alkaline phosphatase 118. LDH 447. CRP is 8.7. Urinalysis shows few pus cells. Coags - D-dimer 4.0. IMAGING STUDIES: The patient had a chest x-ray which showed cardiomegaly and mild pulmonary edema. There is atelectasis, left mid lung base. IMPRESSION: 1. Decompensated congestive heart failure/acute systolic. 2. Pulmonary edema. 3. Cellulitis, right lower extremity. 4. Homeless. 5. Chronic hepatitis C. 6. Smoker. 7. Chronic obstructive pulmonary disease. DISCUSSION: Admit to the hospital. Start Ancef daily. The patient received vancomycin yesterday. I will discontinue Ancef and start her on vancomycin per pharmacy given the fact that she failed Bactrim and Keflex as outpatient. Diuretics per Dr. Hatfield. We will request 2D echo. We will follow carefully. Valdemar Still M.D. DR: ALISIA JOB#: [id number] CC:
--- NOTE | 2020-01-29 16:40 | NUR ---
NURSE NOTES: Patient was agitated because she wasn't able to go downstairs to see her dog and not able to smoke. She started throw cans and water pitcher to staffs, Security was called. Asked for AMA form, and signed. Asked for wheelchair, explained that if patient sign out AMA, [facility] don't provide any service. Robertson, IV and campus monitor removed, no bleeding noted. One of her family member came upstairs and escorted patient downstairs.
[2020-01-29] MEDS ORDERED: Vancomycin 1.25gm Premix q24h IVPB SCH (21:00)
--- NOTE | 2020-01-29 23:34 | Psychiatric Progress Note ---
Psychiatry Progress Note Psychiatry Progress Note Allergies: Coded Allergies: No Known Allergies (Unverified , 12/23/19) Objective Data Height (Feet): 5 Height (Inches): 7.00 Weight (Pounds): 334 Zuleyka Ward MD Jan 29, 2020 23:34
--- NOTE | 2020-01-30 02:30 | Consultation ---
DATE OF CONSULTATION: 01/29/2020 CONSULTING PHYSICIAN: Zuleyka Ward MD HISTORY OF PRESENT ILLNESS: This is a 44-year-old homeless female who has been admitted to the hospital for medical stabilization. Patient was agitated and is currently withdrawing from alcohol. Patient is yelling, screaming, paranoid, stated that he wants to leave. Patient is withdrawing from alcohol. PAST PSYCHIATRIC HISTORY: Depression and anxiety. PAST MEDICAL HISTORY: COPD, obesity, diabetes, hepatitis C. ALLERGIES: No known drug allergies. SUBSTANCE ABUSE HISTORY: Significant for alcohol use. Urine toxicology was not done. MENTAL STATUS EXAMINATION: Patient is alert, oriented times self, place, situation. Mood is agitated. Affect is flat. Thought process, disorganized. Thought content, no suicidal or homicidal ideation. Cognition is impaired. Insight and judgment is impaired. ASSESSMENT: Reddick I Alcohol dependence. Alcohol withdrawal. Reddick II Deferred. Reddick III As above. Reddick IV Homelessness. Reddick V 20. PLAN: 1. We will start the patient on psychotropic medication. 2. Provide the patient with reality orientation and supportive therapy. Zuleyka Ward M.D. DR: JAYLIN JOB#: [id number] CC:
--- NOTE | 2020-01-30 08:16 | Discharge Summary ---
Discharge Summary Discharge Summary _ DATE OF ADMISSION: 01/28/2020 DATE OF DISCHARGE: 01/29/2020 Patient left AGAINST MEDICAL ADVICE REASON FOR ADMISSION: 44 years old homeless obese female with past medical history of hypertension , COPD/asthma, alcohol use, presented with right lower extremity swelling and shortness of breath. Patient gets her medical care at [facility]. Patient was sent for further management since she failed outpatient treatment on oral antibiotic for right lower extremity cellulitis. Patient was on Septra and Keflex. Symptoms gradually worsened. Patient also reported difficulty breathing and worsening swelling in bilateral lower extremity. She denied fever and chills. She denied cough and congestion. She denied nausea and vomiting. Upon evaluation patient was tachycardic with heart rate 135, tachypneic with respiratory rate 30, pulse oximetry was 96% on room air . Patient was also hypertensive -163/100 Laboratory work-up revealed no leukocytosis, stable hemoglobin and hematocrit. D-dimer 4.08. Stable electrolytes and renal parameters. Glucose 135. Lactic acid 2.9 , repeated 2.6. Troponin 0.046, pro BNP 2555. EKG revealed supraventricular tachycardia heart rate in 140th. No PVC no ectopy CRP 8.7. Urinalysis revealed +2 protein, borderline pyuria and few bacteria. Chest x-ray demonstrated cardiomegaly and findings suggestive of incipient congestive heart failure. Scaring versus atelectasis left midlung zone. Rapid COVID-19 was negative. In emergency department patient received Lasix, adenosine, nebulizing treatment. Patient received labetalol for elevated blood pressure. Patient started on oral prednisone. Patient received empiric vancomycin. Patient subsequently admitted to telemetry floor for further management CONSULTANTS: pipe and tank fabricator Dr. Jimenez pulmonary Dr. Still ID specialist Dr. Milan psychiatrist Dr. Ward [facility] COURSE: Patient admitted to telemetry floor. Weaving Loom Operator closely followed. Echocardiogram demonstrated global left ventricular hypokinesis with left ventricular ejection fraction estimated to be 25 to 30%. No evidence of left ventricular hypertrophy. No evidence of pericardial fat or effusion. Patient started on diuretic with close monitoring of volumes and cardiorenal parameters. Patient received multiple dose of adenosine in the emergency room. Weaving Loom Operator recommended keep patient off beta-darshana with close observation of supraventricular tachycardia. Heart rate improved however she still remained tachycardic. Supplemental oxygen provided and titrated to keep pulse oximetry above 92% . Pulmonary toilet provided. Pulse oximetry remained stable on 2 L of oxygen via nasal cannula. Antibiotic provided as per ID specialist recommendation. On 10/21/2017 patient decided to leave AGAINST MEDICAL ADVICE. The risks and consequences of signing AGAINST MEDICAL ADVICE were discussed with patient in detail. Patient verbalized understanding, nevertheless signed AMA form and left. FINAL DIAGNOSES: Cellulitis right lower extremity Acute decompensated congestive heart failure, systolic Pulmonary edema Supraventricular tachycardia Hypertension with initial hypertensive urgency Morbid obesity COPD Homeless Chronic hepatitis C Smoker Alcohol dependency I have been assigned to dictate discharge summary for this account. I was not involved in the patient's management. Geeta Haskins NP Jan 30, 2020 08:16
== END 2020-01-29 16:40 | disposition left against medical advice (07) | DRG 190 ==
LOC: EMR 18:00 → 2E 21:02 → EDBEDREQ 21:27
DX: J44.1 Chronic obstructive pulmonary disease with (acute) exacerbation (principal); I50.23 Acute on chronic systolic (congestive) heart failure; L03.115 Cellulitis of right lower limb; Z68.43 Body mass index [BMI] 50.0-59.9, adult; I47.1 Supraventricular tachycardia; E46 Unspecified protein-calorie malnutrition; F10.239 Alcohol dependence with withdrawal, unspecified; I11.0 Hypertensive heart disease with heart failure; E66.01 Morbid (severe) obesity due to excess calories; Z59.0 Homelessness; I16.0 Hypertensive urgency; B18.2 Chronic viral hepatitis C; F17.200 Nicotine dependence, unspecified, uncomplicated; F15.10 Other stimulant abuse, uncomplicated
CPT/HCPCS: 36415; 71045; 80053; 81003; 82248; 82550; 82553; 82728; 83605; 83615; 83690; 83880; 84484; 85025; 85379; 85610; 85730; 86140; 87081; 87086; 93005; 93306; 94640; 96365; 96375; 96376; 99291; U0002